=== PATIENT | male | born 1945 ===

== ENCOUNTER 2019-01-12 11:08 | Day surgery (SDC) | payer OTHER ==
[~2019-01-12] VITALS: Ht 172.7 cm; Wt 98.8 kg
[~2019-01-12 11:08] MED LIST: AMLO5; ASPI325; HYDACE5; HYDACE5 PO; METO25ER; SULTRIDS PO; Simvastatin40 MG; TAMS.4ER
--- NOTE | 2019-01-12 15:11 | NUR ---
01/12/19 1511 Rashad Kraft PTS B/P IMMED. AFTER PROCEDURE, IN STEPDOWN, WAS 224/100. PT REPORTED NO C/P, NAUSEA, ABD PAIN, OR HEADACHE. DID REPORT ONLY SLIGHT DIZZINESS WHEN SAT UP LATER, WHICH RESOLVED SHORTLY. SEVERAL SUBSEQUENT B/P'S TAKEN WITH LITTLE CHANGE: SYSTOLIC STAYED OVER 200 WITH DIASTOLIC OVER 200 ONE TIME. THIS WAS REPORTED TO DR BALBUENA WHO ORDERED CLONIDINE 0.1MG PO X 1. THIS WAS GIVEN AT 1350 AFTER GETTING FROM PHARMACY. HIS B/P WAS 202/[address] BALBUENA CONSULTED AND ORDERED ANOTHER CLONIDINE 0.1MG PO. PTS B/P WAS 169/77 AT 1430 BEFORE 2ND CLONIDINE GIVEN. PT DISCHARGED HOME AND 2ND CLONIDINE RETURNED TO PHARMACY. DR BALBUENA STATED THAT HE WOULD CALL PTS PCP IN AM TO HAVE PT COME IN FOR B/P FOLLOWUP AND EVALUATION.
== END 2019-01-12 14:45 | disposition home or self-care (01) ==
LOC: ORSCSDS 11:08
PROVIDERS: Internal Medicine Gastroenterology
PROC: 0DBL8ZX Excision of Transverse Colon, Via Natural or Artificial Opening Endoscopic, Diagnostic (ICD-10-PCS; principal; 2019-01-12 12:30)
PROC: 0DBH8ZX Excision of Cecum, Via Natural or Artificial Opening Endoscopic, Diagnostic (ICD-10-PCS; principal; 2019-01-12 12:30)
DX: Z12.11 Encounter for screening for malignant neoplasm of colon (principal); D12.0 Benign neoplasm of cecum; D12.3 Benign neoplasm of transverse colon; K57.30 Diverticulosis of large intestine without perforation or abscess without bleeding; K64.1 Second degree hemorrhoids; I10 Essential (primary) hypertension; E78.5 Hyperlipidemia, unspecified; E78.00 Pure hypercholesterolemia, unspecified; I25.10 Atherosclerotic heart disease of native coronary artery without angina pectoris; Z79.899 Other long term (current) drug therapy; Z79.82 Long term (current) use of aspirin
CPT/HCPCS: 88305; J2405; J7120

== ENCOUNTER 2019-10-18 16:25 | Inpatient (IN) | payer OTHER ==
[~2019-10-18] VITALS: Ht 172.7 cm; Wt 91.4 kg
[~2019-10-18 16:25] MED LIST changes: -ASPI81CH PO; -XARELTO20 MG PO
[2019-10-18] MEDS ORDERED: XARELTO20 MG PO (17:25)
[2019-10-18 18:25] LABS: BASOPHILS ABSOLUTE AUTO 0.04 K/mm3 (0.00-0.23); BASOPHILS PERCENT AUTO 0 % (0-2); EOSINOPHILS ABSOLUTE AUTO 0.09 K/mm3 (0.00-0.68); EOSINOPHILS PERCENT AUTO 1 % (0-6); Hematocrit 22.4 % (37.0-53.0); Hemoglobin 6.8 g/dL (13.5-17.5); IMMATURE GRAN ABSOLUTE AUTO 0.06 K/mm3 (0.00-0.10); IMMATURE GRAN PERCENT AUTO 1 % (0-1); LYMPHOCYTES ABSOLUTE AUTO 2.22 K/mm3 (0.84-5.20); LYMPHOCYTES PERCENT AUTO 25 % (21-46); MONOCYTES ABSOLUTE AUTO 0.58 K/mm3 (0.16-1.47); MONOCYTES PERCENT AUTO 6 % (4-13); Mean Corpuscular HGB Conc 30.4 g/dL (31.5-36.5); Mean Platelet Volume 10.2 fL (9.1-12.4); NEUTROPHILS ABSOLUTE AUTO 6.04 K/mm3 (1.96-9.15); NEUTROPHILS PERCENT AUTO 67 % (41-73); Platelet Count 269 K/mm3 (150-400); RDW Coefficient Variation 16.8 % (11.7-14.2); RDW Standard Deviation 52.9 fL (35.1-46.3); Red Blood Cell Count 2.62 M/mm3 (4.30-5.90); White Blood Cell Count 9.03 K/mm3 (4.00-11.30)
[2019-10-18 18:32] LABS: Mean Corpuscular Volume 86 fL (80-100)
[2019-10-18] MEDS ORDERED: ASPI81CH PO (18:50)
[2019-10-18 19:08] LABS: International Normalized Ratio 1.28; Prothrombin Time Results 13.3 Sec (9.7-11.5)
--- NOTE | 2019-10-18 21:01 | NUR ---
ADMISSION NOTE PT ARRIVED TO UNIT AT 2013 VIA STRETCHER AND AMBULATE SBA c CANE TO BED. PT REPORTS SOB AND DIZZINESS WITH EXCERTION SINCE SATURDAY. PT HAD RECENT TURP PROCEDURE IN AUG AND HAS BEEN EXPERIENCING HEMATURIA SINCE THEN. AWAITING URINE SAMPLE TO SEND TO LAB. LLE DVT, SLIGHT SWELLING, LLE ON PILLOW. PRBC INFUSING UPON ARRIVAL, APPROX 100 ML LEFT ON ARRIVAL. NO TRANSFUSION REACTION NOTED, VSS. LS CLEAR. ASSUMING CARE OF PT.
[2019-10-18 21:52] LABS: BASOPHILS ABSOLUTE AUTO 0.04 K/mm3 (0.00-0.23); BASOPHILS PERCENT AUTO 0 % (0-2); EOSINOPHILS ABSOLUTE AUTO 0.16 K/mm3 (0.00-0.68); EOSINOPHILS PERCENT AUTO 2 % (0-6); Hematocrit 26.9 % (37.0-53.0); Hemoglobin 8.2 g/dL (13.5-17.5); IMMATURE GRAN ABSOLUTE AUTO 0.06 K/mm3 (0.00-0.10); IMMATURE GRAN PERCENT AUTO 1 % (0-1); LYMPHOCYTES PERCENT AUTO 36 % (21-46); MONOCYTES ABSOLUTE AUTO 0.59 K/mm3 (0.16-1.47); MONOCYTES PERCENT AUTO 6 % (4-13); Mean Corpuscular HGB 25.9 pg (26.0-34.0); Mean Corpuscular HGB Conc 30.5 g/dL (31.5-36.5); Mean Corpuscular Volume 85 fL (80-100); Mean Platelet Volume 9.6 fL (9.1-12.4); NEUTROPHILS ABSOLUTE AUTO 5.57 K/mm3 (1.96-9.15); NEUTROPHILS PERCENT AUTO 56 % (41-73); Platelet Count 284 K/mm3 (150-400); RDW Coefficient Variation 16.5 % (11.7-14.2); Red Blood Cell Count 3.16 M/mm3 (4.30-5.90); Source, Urine Clean Catch; White Blood Cell Count 10.02 K/mm3 (4.00-11.30)
[2019-10-18 21:55] LABS: Bilirubin, Urine Neg (Neg); Blood, Urine 5+ (Neg); Glucose Qualitative, Urine Neg (Neg); Ketones, Urine 1+ (Neg); Leukocyte Esterase, Urine 3+ (Neg); Nitrite, Urine Neg (Neg); Protein, Urine 3+ (Neg); Specific Gravity, Urine 1.015 (1.003-1.022); Urobilinogen, Urine NORM (Normal)
[2019-10-18 21:59] LABS: Appearance, Urine Cloudy (Clear); Color, Urine Red (P-Yellow)
[2019-10-18 22:01] LABS: Bacteria Many /hpf; Red Blood Cells, Urine TNTC /hpf (0-2); Squamous Epithelial Cells Not Seen /hpf (Few); White Blood Cells, Urine 50-100 /hpf (0-5)
--- NOTE | 2019-10-18 22:01 | NUR ---
1ST UNIT PRBC COMPLETE. VSS, NO TRANSFUSION REACTION, LUIS A WELL. RECHECK HGB 8.2. NOTIFIED DR ZAMBRANO, HOLD OFF ON SECOND UNIT AT THIS TIME. RECHECK CBC IN AM.
[2019-10-19 04:03] LABS: BASOPHILS ABSOLUTE AUTO 0.04 K/mm3 (0.00-0.23); BASOPHILS PERCENT AUTO 1 % (0-2); EOSINOPHILS ABSOLUTE AUTO 0.22 K/mm3 (0.00-0.68); EOSINOPHILS PERCENT AUTO 3 % (0-6); IMMATURE GRAN ABSOLUTE AUTO 0.05 K/mm3 (0.00-0.10); IMMATURE GRAN PERCENT AUTO 1 % (0-1); LYMPHOCYTES ABSOLUTE AUTO 3.02 K/mm3 (0.84-5.20); LYMPHOCYTES PERCENT AUTO 40 % (21-46); MONOCYTES ABSOLUTE AUTO 0.66 K/mm3 (0.16-1.47); MONOCYTES PERCENT AUTO 9 % (4-13); Mean Corpuscular HGB 25.8 pg (26.0-34.0); Mean Corpuscular HGB Conc 30.4 g/dL (31.5-36.5); Mean Corpuscular Volume 85 fL (80-100); Mean Platelet Volume 9.9 fL (9.1-12.4); NEUTROPHILS ABSOLUTE AUTO 3.48 K/mm3 (1.96-9.15); NEUTROPHILS PERCENT AUTO 47 % (41-73); Platelet Count 236 K/mm3 (150-400); RDW Coefficient Variation 16.6 % (11.7-14.2); RDW Standard Deviation 51.4 fL (35.1-46.3); Red Blood Cell Count 2.71 M/mm3 (4.30-5.90); White Blood Cell Count 7.47 K/mm3 (4.00-11.30)
[2019-10-19 04:22] LABS: Alanine Aminotransfer (ALT/SGP 17 U/L (12-78); Albumin, Blood 2.8 g/dL (3.4-5.0); Albumin/Globulin Ratio 0.8 (0.8-1.8); Alk Phos 58 U/L (50-136); Anion Gap 6 mmol/L (6-16); Aspartate Aminotrans (AST/SGOT 21 U/L (12-37); Bilirubin, Total 0.6 mg/dL (0.1-1.0); Blood Urea Nitrogen 25 mg/dL (8-24); Bun/Creatinine Ratio 23.6 (12.0-20.0); CO2, Blood 25 mmol/L (21-32); Calcium, Blood 8.3 mg/dL (8.5-10.1); Chloride, Blood 112 mmol/L (98-108); Creatinine, Blood 1.06 mg/dL (0.60-1.20); Globulin, Blood 3.3 g/dL (2.2-4.0); Glomerular Filtration Rate >60 (60-); Glucose, Blood 84 mg/dL (70-99); Potassium, Blood 3.9 mmol/L (3.5-5.5); Sodium, Blood 143 mmol/L (136-145); Total Protein, Blood 6.1 g/dL (6.4-8.2)
--- NOTE | 2019-10-19 04:37 | NUR ---
HGB DOWN TO 7.0 WITH AM LABS. NOTIFIED DR LOPEZ. 2ND UNIT PRBCs TO BE GIVEN AT THIS TIME.
--- NOTE | 2019-10-19 05:55 | NUR ---
SHIFT SUMMARY HGB WAS AT 6.8 UPON ARRIVAL. RECIEVED 1 UNIT PRBCs AND HGB WENT UP TO 8.2. THIS AM, HGB DROPPED TO 7.0. 2ND UNIT PRBCs INFUSING AT THIS TIME. PT TOLERATING WELL. LLE ELEVATED FOR DVT. NPO @ [place] PER MD ORDERS. DR BALBUENA CONSULTED. RESP E/U ON RA, REPORTS DYSPNEA WITH EXERTION. URINE SAMPLE SENT TO LAB. URINE IS BRIGHT RED, PAINFUL FOR PT. TNTC RBCs PER LAB REPORTS. UA CULTURE PENDING. WILL CONT TO MONITOR AND PROVIDE CARE UNTIL PRESUMED BY ONCOMING RN.
[2019-10-19 11:54] LABS: BASOPHILS ABSOLUTE AUTO 0.04 K/mm3 (0.00-0.23); BASOPHILS PERCENT AUTO 1 % (0-2); EOSINOPHILS ABSOLUTE AUTO 0.21 K/mm3 (0.00-0.68); EOSINOPHILS PERCENT AUTO 3 % (0-6); Hematocrit 26.1 % (37.0-53.0); Hemoglobin 8.2 g/dL (13.5-17.5); IMMATURE GRAN ABSOLUTE AUTO 0.05 K/mm3 (0.00-0.10); IMMATURE GRAN PERCENT AUTO 1 % (0-1); LYMPHOCYTES ABSOLUTE AUTO 2.54 K/mm3 (0.84-5.20); LYMPHOCYTES PERCENT AUTO 36 % (21-46); MONOCYTES ABSOLUTE AUTO 0.58 K/mm3 (0.16-1.47); MONOCYTES PERCENT AUTO 8 % (4-13); Mean Corpuscular HGB 26.6 pg (26.0-34.0); Mean Corpuscular HGB Conc 31.4 g/dL (31.5-36.5); Mean Corpuscular Volume 85 fL (80-100); NEUTROPHILS ABSOLUTE AUTO 3.67 K/mm3 (1.96-9.15); NEUTROPHILS PERCENT AUTO 52 % (41-73); Platelet Count 219 K/mm3 (150-400); RDW Coefficient Variation 16.5 % (11.7-14.2); RDW Standard Deviation 51.1 fL (35.1-46.3); Red Blood Cell Count 3.08 M/mm3 (4.30-5.90); White Blood Cell Count 7.09 K/mm3 (4.00-11.30)
--- NOTE | 2019-10-19 16:10 | NUR ---
History, Chart, Medications and Allergies reviewed before start of procedure.Patient confirms NPO status and agrees with scheduled surgery.
--- NOTE | 2019-10-19 17:25 | NUR ---
10/19/19 1725 Alesia Montes History, Chart, Medications and Allergies reviewed before start of procedure.PATIENT DETERMINED TO BE ASA APPROPRIATE FOR PROPOFOL SEDATION PRIOR TO START OF PROCEDURE BY .MONITOR INTACT WITH CONTINUOUS PULSE OXIMETRY AND INTERMITTENT BP.3-LEAD EKG REVIEWED WITH PHYSICIAN PRIOR TO START OF PROCEDURE.O2 VIA N/C INTACT THROUGHOUT SEDATION/PROCEDURE
--- NOTE | 2019-10-19 17:32 | NUR ---
SHIFT SUMMARY PT AWAKE DURING SHIFT REPORT. ADMITTED NPO FOR POSSIBLE SCOPE; PER SHIFT REPORT, CONSULT CALLED. DR NOLASCO CALLED WITH ORDERS EARLIER IN THE DAY. PT OFFERED CL DIET THRU LUNCH AND THEN STRICT NPO AT 1400. PT REFUSED CLEAR LIQUIDS OFFERED, WANTING TO EAT. PT VERY IRRITABLE AND GRUMPY THRU OUT THE DAY. UNABLE TO PLEASE. PT NOT UNDERSTANDING NEED TO BE NPO, AND THINKING THAT IF HE WAS TX'D TO A DIFFERENT FLOOR HE WOULD BE ABLE TO EAT WHAT HE WANTED. DR VILLAGOMEZ WELL IN TO SEE PT AND AWARE OF PT'S REQUEST. DR VILLAGOMEZ ALSO ATTEMPTED TO EDU PT ON NPO STATUS AND PLAN OF CARE. PT RECEIVING 2ND UNIT PRBC'S DURING SHIFT REPORT; PT TOLERATED WELL. H&H YANN'D; IMPROVED, SEE CHART. PT CONTINUES TO HAVE DIFFICULTY VOIDING, "JUST DRIBBLING ALL OVER". BLOOD TINGED URINE IN TOILET AND ALL OVER BTHRM FLOOR, WHEN ABLE TO VOID. DAY SX HERE THIS AFTERNOON TO TAKE PT FOR EGD; 1725 PT RETURNED TO , ABLE TO TX SELF TO BED WITH SBA. PER REPORT, NO EVIDENCE OF BLEEDING FOUND. POSSIBLE BLOOD LOSS D/T RECENT TURP PROCEDURE AND XARELTO. DIET ORDERED FOR PT. LAB IN FOR SCHEDULED H&H DUE NOW. PT INSTRUCTED TO CALL FOR ASSIST IF NEEDING UP TO BTHRM; VERBALIZED UNDERSTANDING. CALL LT IN REACH.
[2019-10-19 18:20] LABS: Hematocrit 26.8 % (37.0-53.0); Hemoglobin 8.5 g/dL (13.5-17.5)
[2019-10-20 05:40] LABS: BASOPHILS ABSOLUTE AUTO 0.04 K/mm3 (0.00-0.23); BASOPHILS PERCENT AUTO 0 % (0-2); EOSINOPHILS ABSOLUTE AUTO 0.19 K/mm3 (0.00-0.68); EOSINOPHILS PERCENT AUTO 2 % (0-6); Hematocrit 24.9 % (37.0-53.0); Hemoglobin 7.7 g/dL (13.5-17.5); IMMATURE GRAN ABSOLUTE AUTO 0.04 K/mm3 (0.00-0.10); IMMATURE GRAN PERCENT AUTO 0 % (0-1); LYMPHOCYTES ABSOLUTE AUTO 2.48 K/mm3 (0.84-5.20); LYMPHOCYTES PERCENT AUTO 26 % (21-46); MONOCYTES ABSOLUTE AUTO 0.65 K/mm3 (0.16-1.47); MONOCYTES PERCENT AUTO 7 % (4-13); Mean Corpuscular HGB 26.2 pg (26.0-34.0); Mean Corpuscular HGB Conc 30.9 g/dL (31.5-36.5); Mean Corpuscular Volume 85 fL (80-100); Mean Platelet Volume 10.3 fL (9.1-12.4); NEUTROPHILS ABSOLUTE AUTO 5.98 K/mm3 (1.96-9.15); NEUTROPHILS PERCENT AUTO 64 % (41-73); Platelet Count 229 K/mm3 (150-400); RDW Coefficient Variation 16.6 % (11.7-14.2); RDW Standard Deviation 51.1 fL (35.1-46.3); Red Blood Cell Count 2.94 M/mm3 (4.30-5.90); White Blood Cell Count 9.38 K/mm3 (4.00-11.30)
[2019-10-20 06:01] LABS: Albumin, Blood 2.8 g/dL (3.4-5.0); Anion Gap 7 mmol/L (6-16); Blood Urea Nitrogen 21 mg/dL (8-24); Bun/Creatinine Ratio 20.2 (12.0-20.0); CO2, Blood 24 mmol/L (21-32); Calcium, Blood 8.3 mg/dL (8.5-10.1); Chloride, Blood 111 mmol/L (98-108); Creatinine, Blood 1.04 mg/dL (0.60-1.20); Glomerular Filtration Rate >60 (60-); Glucose, Blood 89 mg/dL (70-99); Potassium, Blood 3.9 mmol/L (3.5-5.5); Sodium, Blood 142 mmol/L (136-145)
--- NOTE | 2019-10-20 06:49 | NUR ---
SHIFT SUMMARY: PATIENT IS A&OX4, PATIENT WAS UPSET ABOUT HIS DINNER AT START OF SHIFT, BP WAS ELEVATED AT THAT TIME. PATIENT WAS QUITE AGGITATED. A FREIND BROUGHT IN SOME FOOD THAT HE WOULD LIKE AND THIS SEEMED TO SETTLE PATIENT. BP WAS THEN WNL. THIS AM SBP IS 99, PATIENT IS ASYMPTOMATIC WITH THESE BP'S. BREAKFAST MENU WAS OBTAINED AND PATIENT HAS ORDERED A DISERED BREAKFAST FOR THIS MORNING.
[2019-10-20 10:04] LABS: Hemoglobin 8.3 g/dL (13.5-17.5)
[2019-10-20 13:58] LABS: Hematocrit 28.2 % (37.0-53.0); Hemoglobin 8.6 g/dL (13.5-17.5)
--- NOTE | 2019-10-20 19:17 | NUR ---
SHIFT SUMMARY PT SLEEPING THIS AM DURING SHIFT REPORT. WAS ABLE TO CHOSE BREAKFAST MENU, WHICH MADE HIM HAPPY, SO HE WAS IN A BETTER MOOD TODAY THAN PREVIOUS DAYS. [facility], BUT HAVING DIFFICULTY. DR VILLAGOMEZ IN TO SEE PT AND DISCUSS PLAN OF CARE. H&H YANN'D AND PT TO POSSIBLY D/C HOME, BUT REPORTED THE DIFFICULTY IN BEING ABLE TO VOID. BLADDER SCAN ORDERED AND DR VILLAGOMEZ NOTIFIED OF RESULT. NEW ORDERS RECEIVED TO PLACE [place] CATH. MULTIPLE ATTEMPTS MADE TO PLACE DIFFERENT SIZE CATHETERS; UNSUCCESSFUL EACH TIME. DR VILLAGOMEZ NOTIFIED EACH TIME AND ATTEMPTED TO CALL PT'S UROLOGIST, REKHA LOZA. [facility] RN FINALLY NOTIFIED DR LOZA AFTER BEING UNSUCCESSFUL IN PLACING [place]. DR LOZA GAVE ORDERS TO ATTEMPT AGAIN WITH SPECIFIC INSTRUCTIONS; STILL UNSUCCESSFUL. DR LOZA NOTIFIED AGAIN AND NEW ORDERS RECEIVED TO MAKE PT NPO AND PREPARE FOR TX TO [facility]. FAMILY IN TO SEE PT AT THIS TIME. PT WAS ABLE TO VOID 275cc ON HIS OWN AFTER SOME ATTEMPTS AT PL[place]ING [place]. SECOND BLADDER SCAN DONE SHOWING EVEN MORE URINE IN BLADDER; >800cc, SEE CHART. PT IN VISITING WITH SISTER. CALL LT IN REACH.
--- NOTE | 2019-10-20 21:22 | NUR ---
: PATIENT HAS BEEN ABLE TO VOID 200ML SINCE 1899. REPORTS NO DISCOMFORT OR ABD. PRESSURE. PT IS NPO AT THIS TIME.
--- NOTE | 2019-10-20 21:24 | NUR ---
TRANSFER: DR LOZA WAS NOTIFIED BY DAY SHIFT OF FAILURE TO PLACE [address] [place]. ORDER WAS OBTAINED FOR A [facility] TRANSFER TO [facility] IN [place]. PATIENT WAS INFORMED OF PLAN FOR TRANSFER TO [facility]. REPORT WAS CALLED TO KELBY MAGANA, AWAITING TRANSPORT AT THIS TIME.
--- NOTE | 2019-10-20 21:44 | NUR ---
TRANSFER: PATIENT IS TRANSFERED OFF UNIT VUA STRETCHER.
== END 2019-10-20 21:49 | disposition short-term general hospital (02) | DRG 696 ==
LOC: ER 16:25 → MEDS 16:26
PROVIDERS: Emergency Medicine; Family Medicine; Physician Assistant; Student in an Organized Health Care Education/Training Program; ADMIT Internal Medicine
PROC: 30233N1 Transfusion of Nonautologous Red Blood Cells into Peripheral Vein, Percutaneous Approach (ICD-10-PCS; 2019-10-19)
PROC: 0DJ08ZZ Inspection of Upper Intestinal Tract, Via Natural or Artificial Opening Endoscopic (ICD-10-PCS; principal; 2019-10-19 16:30)
DX: R31.9 Hematuria, unspecified (principal); I82.502 Chronic embolism and thrombosis of unspecified deep veins of left lower extremity; D62 Acute posthemorrhagic anemia; K92.1 Melena; I10 Essential (primary) hypertension; N17.9 Acute kidney failure, unspecified; I25.10 Atherosclerotic heart disease of native coronary artery without angina pectoris; R33.9 Retention of urine, unspecified
CPT/HCPCS: 36415; 36430; 80053; 80069; 81001; 82272; 85014; 85018; 85025; 85610; 86850; 86900; 86901; 86923; 87086; 93971; 96374; 96376; 99285-25; C9113; G0378; J2704; J7030; J7040; J7120; P9016

== ENCOUNTER → 2019-10-18 | Outpatient (CLI) | payer OTHER ==
[~2019-10-18] MED LIST changes: -AMLO5; +AMLO5 PO; +ASPI81CH PO; +METO25 PO; -METO25ER; -Simvastatin40 MG; +Simvastatin40 MG PO; +XARELTO20 MG PO
[2019-10-18 16:00] LABS: BASOPHILS ABSOLUTE AUTO 0.05 K/mm3 (0.00-0.23); BASOPHILS PERCENT AUTO 1 % (0-2); EOSINOPHILS ABSOLUTE AUTO 0.07 K/mm3 (0.00-0.68); EOSINOPHILS PERCENT AUTO 1 % (0-6); Hematocrit 22.6 % (37.0-53.0); Hemoglobin 7.2 g/dL (13.5-17.5); IMMATURE GRAN ABSOLUTE AUTO 0.07 K/mm3 (0.00-0.10); IMMATURE GRAN PERCENT AUTO 1 % (0-1); LYMPHOCYTES ABSOLUTE AUTO 1.76 K/mm3 (0.84-5.20); LYMPHOCYTES PERCENT AUTO 19 % (21-46); MONOCYTES ABSOLUTE AUTO 0.73 K/mm3 (0.16-1.47); MONOCYTES PERCENT AUTO 8 % (4-13); Mean Corpuscular HGB 26.5 pg (26.0-34.0); Mean Corpuscular HGB Conc 31.9 g/dL (31.5-36.5); Mean Corpuscular Volume 83 fL (80-100); Mean Platelet Volume 9.9 fL (9.1-12.4); NEUTROPHILS PERCENT AUTO 70 % (41-73); Platelet Count 275 K/mm3 (150-400); RDW Coefficient Variation 16.9 % (11.7-14.2); RDW Standard Deviation 51.6 fL (35.1-46.3); Red Blood Cell Count 2.72 M/mm3 (4.30-5.90); White Blood Cell Count 9.08 K/mm3 (4.00-11.30)
[2019-10-18 16:11] LABS: Alanine Aminotransfer (ALT/SGP 19 U/L (12-78); Albumin, Blood 3.4 g/dL (3.4-5.0); Albumin/Globulin Ratio 0.9 (0.8-1.8); Alk Phos 66 U/L (40-126); Anion Gap 10 mmol/L (6-16); Aspartate Aminotrans (AST/SGOT 28 U/L (12-37); Bilirubin, Total 0.3 mg/dL (0.1-1.0); Blood Urea Nitrogen 25 mg/dL (8-24); Bun/Creatinine Ratio 18.5 (12.0-20.0); CO2, Blood 25 mmol/L (21-32); Calcium, Blood 8.5 mg/dL (8.5-10.1); Chloride, Blood 107 mmol/L (98-108); Creatinine, Blood 1.35 mg/dL (0.60-1.20); Globulin, Blood 3.6 g/dL (2.2-4.0); Glomerular Filtration Rate 52 (60-); Glucose, Blood 92 mg/dL (70-99); Sodium, Blood 142 mmol/L (136-145); Troponin I <0.017 ng/mL (0.000-0.040)
== END | disposition home or self-care (01) ==
LOC: LAB SHORT 15:45 → LAB EV 15:45
PROVIDERS: Physician Assistant
DX: R07.9 Chest pain, unspecified (principal)
CPT/HCPCS: 80053; 84484; 85025

== ENCOUNTER 2020-01-01 15:39 | Emergency (ER) | payer SELFPAY ==
[~2020-01-01] VITALS: Ht 172.7 cm; Wt 97.5 kg
[2020-01-01 16:42] LABS: BASOPHILS ABSOLUTE AUTO 0.04 K/mm3 (0.00-0.23); BASOPHILS PERCENT AUTO 1 % (0-2); EOSINOPHILS ABSOLUTE AUTO 0.04 K/mm3 (0.00-0.68); EOSINOPHILS PERCENT AUTO 1 % (0-6); Hematocrit 34.3 % (37.0-53.0); IMMATURE GRAN ABSOLUTE AUTO 0.02 K/mm3 (0.00-0.10); IMMATURE GRAN PERCENT AUTO 0 % (0-1); LYMPHOCYTES ABSOLUTE AUTO 1.58 K/mm3 (0.84-5.20); LYMPHOCYTES PERCENT AUTO 30 % (21-46); MONOCYTES ABSOLUTE AUTO 0.32 K/mm3 (0.16-1.47); MONOCYTES PERCENT AUTO 6 % (4-13); Mean Corpuscular HGB 20.7 pg (26.0-34.0); Mean Corpuscular HGB Conc 29.2 g/dL (31.5-36.5); Mean Corpuscular Volume 71 fL (80-100); NEUTROPHILS ABSOLUTE AUTO 3.22 K/mm3 (1.96-9.15); NEUTROPHILS PERCENT AUTO 62 % (41-73); RDW Coefficient Variation 19.6 % (11.7-14.2); RDW Standard Deviation 49.1 fL (35.1-46.3); Red Blood Cell Count 4.83 M/mm3 (4.30-5.90); White Blood Cell Count 5.22 K/mm3 (4.00-11.30)
[2020-01-01 16:54] LABS: International Normalized Ratio 1.02; Prothrombin Time Results 10.9 Sec (9.7-11.5)
[2020-01-01 17:03] LABS: Platelet Count 202 K/mm3 (150-400)
[2020-01-01 17:12] LABS: Alanine Aminotransfer (ALT/SGP 15 U/L (12-78); Albumin, Blood 3.5 g/dL (3.4-5.0); Albumin/Globulin Ratio 0.9 (0.8-1.8); Alk Phos 65 U/L (50-136); Anion Gap 4 mmol/L (6-16); Aspartate Aminotrans (AST/SGOT 16 U/L (12-37); Bilirubin, Total 0.3 mg/dL (0.1-1.0); Blood Urea Nitrogen 13 mg/dL (8-24); Bun/Creatinine Ratio 14.7 (12.0-20.0); CO2, Blood 24 mmol/L (21-32); Calcium, Blood 8.8 mg/dL (8.5-10.1); Chloride, Blood 110 mmol/L (98-108); Creatinine, Blood 0.88 mg/dL (0.60-1.20); Glomerular Filtration Rate >60 (60-); Glucose, Blood 98 mg/dL (70-99); Sodium, Blood 138 mmol/L (136-145); Total Protein, Blood 7.5 g/dL (6.4-8.2)
== END 2020-01-01 18:55 | disposition home or self-care (01) ==
LOC: ER 15:39
PROVIDERS: Physician Assistant
DX: R47.01 Aphasia (principal); Z79.899 Other long term (current) drug therapy; Z79.82 Long term (current) use of aspirin
CPT/HCPCS: 36415; 70450; 80053; 85025; 85610; 93005; 93010; 99285-25

== ENCOUNTER → 2020-01-01 | Outpatient (CLI) | payer SELFPAY ==
[~2020-01-01] MED LIST changes: +ASPI81CH PO; +XARELTO20 MG PO
[2020-01-01 15:56] LABS: BASOPHILS ABSOLUTE AUTO 0.07 K/mm3 (0.00-0.23); BASOPHILS PERCENT AUTO 1 % (0-2); EOSINOPHILS ABSOLUTE AUTO 0.03 K/mm3 (0.00-0.68); EOSINOPHILS PERCENT AUTO 1 % (0-6); Hematocrit 35.3 % (37.0-53.0); Hemoglobin 10.4 g/dL (13.5-17.5); IMMATURE GRAN ABSOLUTE AUTO 0.05 K/mm3 (0.00-0.10); IMMATURE GRAN PERCENT AUTO 1 % (0-1); LYMPHOCYTES ABSOLUTE AUTO 1.74 K/mm3 (0.84-5.20); LYMPHOCYTES PERCENT AUTO 34 % (21-46); MONOCYTES ABSOLUTE AUTO 0.33 K/mm3 (0.16-1.47); MONOCYTES PERCENT AUTO 7 % (4-13); Mean Corpuscular HGB 20.6 pg (26.0-34.0); Mean Corpuscular HGB Conc 29.5 g/dL (31.5-36.5); Mean Corpuscular Volume 70 fL (80-100); NEUTROPHILS ABSOLUTE AUTO 2.86 K/mm3 (1.96-9.15); NEUTROPHILS PERCENT AUTO 56 % (41-73); RDW Standard Deviation 48.5 fL (35.1-46.3); Red Blood Cell Count 5.06 M/mm3 (4.30-5.90); White Blood Cell Count 5.08 K/mm3 (4.00-11.30)
[2020-01-01 16:18] LABS: Alanine Aminotransfer (ALT/SGP 16 U/L (12-78); Albumin, Blood 3.7 g/dL (3.4-5.0); Albumin/Globulin Ratio 0.9 (0.8-1.8); Alk Phos 66 U/L (40-126); Anion Gap 9 mmol/L (6-16); Aspartate Aminotrans (AST/SGOT 21 U/L (12-37); Bilirubin, Total 0.4 mg/dL (0.1-1.0); Blood Urea Nitrogen 11 mg/dL (8-24); CO2, Blood 24 mmol/L (21-32); Calcium, Blood 8.5 mg/dL (8.5-10.1); Chloride, Blood 105 mmol/L (98-108); Creatinine, Blood 0.92 mg/dL (0.60-1.20); Globulin, Blood 4.1 g/dL (2.2-4.0); Glomerular Filtration Rate >60 (60-); Glucose, Blood 110 mg/dL (70-99); Sodium, Blood 138 mmol/L (136-145); Total Protein, Blood 7.8 g/dL (6.4-8.2)
[2020-01-01 16:28] LABS: Platelet Count 195 K/mm3 (150-400)
== END ==
LOC: LAB SHORT 15:38 → LAB EV 15:38
PROVIDERS: Nurse Practitioner
DX: I69.320 Aphasia following cerebral infarction (principal)
CPT/HCPCS: 80053; 85025

== ENCOUNTER → 2022-01-01 | Outpatient (CLI) | payer OTHER ==
[~2022-01-01] MED LIST changes: +CLOP75 PO
== END | disposition home or self-care (01) ==
LOC: LAB SHORT 08:14
DX: L82.1 Other seborrheic keratosis (principal)
CPT/HCPCS: 88305

== ENCOUNTER 2022-04-02 09:03 | Day surgery (SDC) | payer OTHER ==
[~2022-04-02] VITALS: Ht 172.7 cm; Wt 113.4 kg
[~2022-04-02 09:03] MED LIST changes: -METO25 PO; +METO50ER PO
[2022-04-02] MEDS ORDERED: AMIODARONE HCL200 M1 PO (10:12)
[2022-04-02] MEDS ORDERED: ATOR40TA PO (10:13)
--- NOTE | 2022-04-02 10:50 | NUR ---
0940 JOSE A WAS BROUGHT TO ROOM 207 BY [facility] RN AND PERPPED FOR DAVID. UNDRESSED FROM [facility] WAIST UP, CHANGED INTO GOWN, PLACED ON THE MONITOR. PIV TO THE LEFT HAND STARTED. NURSING ASSESSMENT PERFORMED. CONSENTS VERIFIED. BLOOD CONSENT SIGNED. RHYTHM STRIP OBTAINED AND VERIFIED, SINUS. BOOKKEEPER AT THE BEDSIDE AND ROOM SET UP. EMERGENCY EQUIPMENT AVAILABLE. RSI KIT ANDANESTHESIA CART AT THE BEDSIDE. VERIFIED RIDE HOME FROM PATIENT MELLO BINGH[place], . GLASSES AND CELL PHONE SECURED FOR PATIENT AT THE BEDSIDE. ANESTHESIA, DR. WEINSTEIN HERE AT 1025 AND SPOKE WITH THE PATIENT, CONSENTED AND HISTROY GATHERED. DR. WISEMAN ARRIVED AT 1040 AND PROCEDURE STARTED. SEE SEDATION RECORD.
--- NOTE | 2022-04-02 10:55 | NUR ---
1050 RECOVER PERFORMED AT THE BEDSIDE. PATIENT REMOANS ON THE MONITOR AND SLEEPY, AWAKES TO VERBAL AND PHYSICAL STIMULI. SINUS/REKHA 48-55 NOTED ON THE MONITOR. SIDE RAILS UP X 2. WEANING OXYGEN FROM FACE MASK TO ROOM AIR TOLERATED PAITENT WAKES.
--- NOTE | 2022-04-02 11:43 | NUR ---
1130 PATIENT PIV REMOVED, CATH TIP INTACT AND ORESSURE DRESISNG APLLIED, PAITENT OFF MONITOR AND DRESSED SELF, ALL BELONGING RETAINED INCLUDING GLASSES AND CELL PHONE. PATIENT T OTHE WHEELCHAIR. REVIEWED ALL DISCHARGE INSTRUCITONS AND SIGNATURES OBTAINED. COPIES GIVEN TO THE PATIENT AND PAITEN WHEELCHAIRED TO THE [place] ENTRANCE AND DISCHARGED TO [facility].
== END 2022-04-02 11:30 | disposition home or self-care (01) ==
LOC: MHTC 09:03
DX: I48.0 Paroxysmal atrial fibrillation (principal); I25.10 Atherosclerotic heart disease of native coronary artery without angina pectoris; I10 Essential (primary) hypertension; E78.5 Hyperlipidemia, unspecified; Z79.01 Long term (current) use of anticoagulants; I45.2 Bifascicular block
CPT/HCPCS: 93312; 93325; A9270; J2704; J7030

== ENCOUNTER 2022-09-17 10:38 | Day surgery (SDC) | payer OTHER ==
[~2022-09-17] VITALS: Ht 172.7 cm; Wt 114.0 kg
[~2022-09-17 10:38] MED LIST changes: +AMIODARONE HCL200 M1 PO; +AMLO10; +ATOR40TA PO; +CLOP75; +NAPR220
--- NOTE | 2022-09-17 11:56 | NUR ---
PT PREPPED FOR POST WATCHMAN DAVID, 20G IV R ARM BY JUANITO MAGANA, COVID TEST RAPID DONE BY JUANITO MAGANA, RESULTS NEGATIVE FOR COVALEJANDRO, DR GARRETT PRESENT FOR ANESTHESIA
--- NOTE | 2022-09-17 13:02 | NUR ---
PT DRESSED, IV DC'D INTACT, DR WISEMAN IN TO DISCUSS PLAN OF CARE, PT DC'D BY WC, FRIEND DRIVING PT HOME, PT SIPS JUICE OK
== END 2022-09-17 13:50 | disposition home or self-care (01) ==
LOC: MHTC 10:38 → ORSCMMR 10:40 → MHTC 13:49
DX: I48.20 Chronic atrial fibrillation, unspecified (principal); I70.0 Atherosclerosis of aorta; I07.1 Rheumatic tricuspid insufficiency; I10 Essential (primary) hypertension; R78.5 Finding of other psychotropic drug in blood; F12.90 Cannabis use, unspecified, uncomplicated; M54.30 Sciatica, unspecified side; G89.29 Other chronic pain; R53.1 Weakness; I82.462 Acute embolism and thrombosis of left calf muscular vein; Z95.818 Presence of other cardiac implants and grafts; Z95.1 Presence of aortocoronary bypass graft
CPT/HCPCS: 93312; 93325; A9270; J2370; J2704; J7120

== ENCOUNTER → 2025-07-12 | Outpatient (CLI) | payer OTHER | END | disposition home or self-care (01) | LOC: LAB SHORT 13:43 → LAB 13:43 | DX: L08.9 Local infection of the skin and subcutaneous tissue, unspecified (principal) | CPT/HCPCS: 87070; 87205 ==

== ENCOUNTER → 2025-07-28 | Outpatient (CLI) | payer OTHER | END | disposition home or self-care (01) | LOC: LAB 18:37 → LAB SHORT 18:37 | DX: L02.212 Cutaneous abscess of back [any part, except buttock and flank] (principal); L29.89 Other pruritus; L53.8 Other specified erythematous conditions; R20.8 Other disturbances of skin sensation | CPT/HCPCS: 87070; 87205 ==

== ENCOUNTER 2025-11-04 05:59 | Day surgery (SDC) | payer OTHER ==
[2025-11-04] VITALS (17 sets, daily range): BP systolic 86–121; BP diastolic 55–104
[~2025-11-04] VITALS: Ht 170.2 cm; Wt 118.0 kg
[~2025-11-04 05:59] MED LIST changes: -AMLO10; +AMLO10 PO; -NAPR220; +NAPR220 PO
[2025-11-04] MEDS ORDERED: NS 1,000 ML IV ONE (06:43)
--- NOTE | 2025-11-04 07:35 | NUR ---
PT AWAKE AND CONVERSING APPROPRIATELY, DENIES PAIN POST PROCEDURE; VSS ON RA.
--- NOTE | 2025-11-04 08:13 | NUR ---
PT DRESSED SELF WITHOUT ISSUE, IV REMOVED-CANNULA INTACT. PT RECEIVED DISCHARGE INSTRUCTIONS, MED LIST AND AFTER CARE INSTRUECTIONS. PT LEFT DEPT VIA W/C, CONDITION STABLE, WAITING FOR RIDE TO ARRIVE.
== END 2025-11-04 23:00 | disposition home or self-care (01) ==
LOC: MHTC 05:59
DX: I48.4 Atypical atrial flutter (principal); I48.0 Paroxysmal atrial fibrillation; I25.810 Atherosclerosis of coronary artery bypass graft(s) without angina pectoris; I11.0 Hypertensive heart disease with heart failure; I50.30 Unspecified diastolic (congestive) heart failure; I45.2 Bifascicular block; E78.5 Hyperlipidemia, unspecified; I25.2 Old myocardial infarction; E66.01 Morbid (severe) obesity due to excess calories; Z68.39 Body mass index [BMI] 39.0-39.9, adult; Z79.82 Long term (current) use of aspirin; Z79.899 Other long term (current) drug therapy; Z88.8 Allergy status to other drugs, medicaments and biological substances
CPT/HCPCS: 92960; 93005; 93010; J7030